=== PATIENT | male | born 1985 | race Caucasian/White ===

== ENCOUNTER → 2016-08-09 | Outpatient (REF) | payer OTHER ==
[~2016-08-09] MED LIST: ALEV220C2 PO; OMEP40CA2 PO
== END ==
LOC: M LAB REF 10:12
PROVIDERS: ATTEND Physician Assistant
DX: J02.9 Acute pharyngitis, unspecified (principal)

== ENCOUNTER → 2018-05-13 | Outpatient (REF) | payer OTHER ==
[2018-05-13 16:59] LABS: INFLUENZA A AMPLIFICATION POSITIVE (NEGATIVE); INFLUENZA B AMPLIFICATION NEGATIVE (NEGATIVE)
== END ==
LOC: M LAB REF 10:39
PROVIDERS: ATTEND Physician Assistant Medical
DX: J11.1 Influenza due to unidentified influenza virus with other respiratory manifestations (principal)

== ENCOUNTER → 2021-12-08 | Outpatient (CLI) | payer OTHER ==
[~2021-12-08] MED LIST changes: -OMEP40CA2 PO; +OMEP40CA4 PO
== END ==
LOC: M WUC 14:10
PROVIDERS: ATTEND Physician Assistant
DX: M25.562 Pain in left knee (principal)

== ENCOUNTER → 2022-01-02 | Outpatient (CLI) | payer BC, OTHER ==
[~2022-01-02] MED LIST changes: +FARX1TAB3 PO
== END ==
LOC: M LABSMTC 11:23
PROVIDERS: ATTEND Anesthesiology
DX: Z20.828 Contact with and (suspected) exposure to other viral communicable diseases (principal); Z11.59 Encounter for screening for other viral diseases

== ENCOUNTER 2022-01-06 09:16 | Day surgery (SDC) | payer BC, OTHER ==
[~2022-01-06] VITALS: Ht 182.9 cm; Wt 115.7 kg
[~2022-01-06 09:16] MED LIST changes: +LIDOCAINE 2% 100MG/5ML SDV (FOR ANES.) As Ordered ONE; +MIDAZOLAM INJ 2MG/2ML VIAL (J2250 PER 1MG) As Ordered ONE; +ONDANSETRON 4MG 2ML VIAL As Ordered ONE; +OXYMETAZOLINE 0.05% NASAL SPRAY (AFRIN) As Ordered ONE; +ROCURONIUM BROMIDE 50 MG/5 ML VIAL As Ordered ONE; +dexameTHASONE 4 MG/ML 1ML VIAL (J1100 PER 1MG) As Ordered ONE; +dexameTHASONE 4 MG/ML 1ML VIAL (J1100 PER 1MG) IV ONE; +fentaNYL 250 MCG/5 ML INJECTION As Ordered ONE; +propofoL 200 MG/20 ML VIAL As Ordered ONE
[2022-01-06] MEDS ORDERED: LR 1,000 ML IV SCH (09:20)
[2022-01-06] MEDS ORDERED: INSULIN LISPRO (NovoLOG) PER UNIT SC PRN (09:50)
[2022-01-06] MEDS ORDERED: propofoL 200 MG/20 ML VIAL As Ordered ONE ×2 (10:03→10:50)
[2022-01-06] MEDS ORDERED: SUGAMMADEX SODIUM 500 MG/5 ML VIAL (BRIDION) As Ordered ONE (10:13)
[2022-01-06] MEDS ORDERED: ACETAMINOPHEN 1000MG 100ML IV BAG As Ordered ONE (10:30)
[2022-01-06] MEDS ORDERED: METOCLOPRAMIDE INJ 10MG/2ML VIAL (J2765 PER 1) As Ordered ONE (10:30)
[2022-01-06] MEDS ORDERED: fentaNYL 100 MCG/2 ML INJECTION IV PRN (11:10)
[2022-01-06] MEDS ORDERED: ONDANSETRON 4MG 2ML VIAL IV PRN (11:10)
[2022-01-06] MEDS ORDERED: METOCLOPRAMIDE INJ 10MG/2ML VIAL (J2765 PER 1) IV PRN (11:10)
[2022-01-06] MEDS ORDERED: oxyCODONE 5MG TAB PO PRN (11:10)
[2022-01-06] MEDS ORDERED: PHENYLEPHRINE 10MG/ML 1ML VIAL As Ordered ONE (11:16)
[2022-01-06 12:42] VITALS: BP 133/75
== END 2022-01-06 12:50 | disposition home or self-care (01) ==
LOC: M SDC 09:16
PROVIDERS: ATTEND Otolaryngology
DX: J35.01 Chronic tonsillitis (principal); E11.9 Type 2 diabetes mellitus without complications; Z79.84 Long term (current) use of oral hypoglycemic drugs
CPT/HCPCS: 42826; 88302; J0131; J1100; J2250; J2370; J2405; J2765; J3010

== ENCOUNTER → 2022-06-30 | Outpatient (REF) | payer OTHER ==
[~2022-06-30] MED LIST changes: -LIDOCAINE 2% 100MG/5ML SDV (FOR ANES.) As Ordered ONE; -MIDAZOLAM INJ 2MG/2ML VIAL (J2250 PER 1MG) As Ordered ONE; -ONDANSETRON 4MG 2ML VIAL As Ordered ONE; -OXYMETAZOLINE 0.05% NASAL SPRAY (AFRIN) As Ordered ONE; -ROCURONIUM BROMIDE 50 MG/5 ML VIAL As Ordered ONE; -dexameTHASONE 4 MG/ML 1ML VIAL (J1100 PER 1MG) As Ordered ONE; -dexameTHASONE 4 MG/ML 1ML VIAL (J1100 PER 1MG) IV ONE; -fentaNYL 250 MCG/5 ML INJECTION As Ordered ONE; -propofoL 200 MG/20 ML VIAL As Ordered ONE
[2022-06-30 19:21] LABS: CREATININE, URINE 68.2 MG/DL; MAU/CREAT RATIO 4.3 MCG/MG (0.0-30.0)
== END ==
LOC: M LAB REF 17:13
PROVIDERS: ATTEND Nurse Practitioner Family
DX: E11.65 Type 2 diabetes mellitus with hyperglycemia (principal)

== ENCOUNTER → 2022-07-11 | Outpatient (REF) | payer OTHER ==
[2022-07-11 13:20] LABS: ALKALINE PHOSPHATASE 65 U/L (46-116); ALT/SGPT 43 U/L (7.0-40); AST/SGOT 22 U/L (<34); BILIRUBIN,TOTAL 0.7 MG/DL (0.3-1.2); BLOOD UREA NITROGEN 15 MG/DL (9-23); CALCIUM LEVEL 8.8 MG/DL (8.5-10.1); CARBON DIOXIDE LEVEL 26 MMOL/L (20-31); CHLORIDE LEVEL 105 MMOL/L (98-107); CHOLESTEROL LEVEL 173 MG/DL (<200); CHOLESTEROL RISK RATIO 4.77 (<5); CREATININE FOR GFR 0.64 MG/DL (0.70-1.30); GLOMERULAR FILTRATION RATE > 60.0 (>60); GLUCOSE, FASTING 238 MG/DL (60-100); HDL CHOLESTEROL 36.2 MG/DL (>40); LDL CHOLESTEROL 115.2 MG/DL (<100); NON-HDL-C 136.8 MG/DL; POTASSIUM SERUM 4.4 MMOL/L (3.5-5.1); SODIUM LEVEL 139 MMOL/L (136-145); TOTAL PROTEIN 6.8 G/DL (5.7-8.2); TRIGLYCERIDES LEVEL 108 MG/DL (<150)
== END ==
LOC: M LABDRWAD 12:33
PROVIDERS: ATTEND Nurse Practitioner Family
DX: E78.2 Mixed hyperlipidemia (principal)

== ENCOUNTER → 2023-10-09 | Outpatient (CLI) | payer BC, OTHER ==
[2023-10-09 11:02] LABS: HEMATOCRIT 43.7 % (42.0-52.0); HEMOGLOBIN 14.5 g/dl (13.5-17.5); MEAN CORPUSCULAR HEMOGLOBIN 27.5 pg (27.0-33.0); MEAN CORPUSCULAR HGB CONC 33.2 g/dl (32.0-36.5); MEAN CORPUSCULAR VOLUME 82.8 fl (80.0-96.0); PLATELET COUNT, AUTOMATED 273 10^3/uL (150-450); RED BLOOD COUNT 5.28 10^6/uL (4.30-6.10)
[2023-10-09 11:26] LABS: ALBUMIN 4.1 G/DL (3.2-5.2); ALKALINE PHOSPHATASE 65 U/L (46-116); ALT/SGPT 28 U/L (7.0-40); AST/SGOT 13 U/L (<34); BILIRUBIN,TOTAL 0.7 MG/DL (0.3-1.2); BLOOD UREA NITROGEN 11 MG/DL (9-23); CALCIUM LEVEL 9.2 MG/DL (8.5-10.1); CARBON DIOXIDE LEVEL 27 MMOL/L (20-31); CHLORIDE LEVEL 106 MMOL/L (98-107); CHOLESTEROL LEVEL 185 MG/DL (<200); CHOLESTEROL RISK RATIO 5.62 (<5); CREATININE FOR GFR 0.71 MG/DL (0.70-1.30); GLOMERULAR FILTRATION RATE > 60.0 (>60); GLUCOSE, FASTING 288 MG/DL (60-100); HDL CHOLESTEROL 32.9 MG/DL (>40); LDL CHOLESTEROL 138.7 MG/DL (<100); NON-HDL-C 152.1 MG/DL; POTASSIUM SERUM 4.3 MMOL/L (3.5-5.1); SODIUM LEVEL 139 MMOL/L (136-145); TRIGLYCERIDES LEVEL 67 MG/DL (<150)
== END ==
LOC: M WUC 08:08
PROVIDERS: ATTEND Physician Assistant
DX: E78.2 Mixed hyperlipidemia (principal); I10 Essential (primary) hypertension; E11.9 Type 2 diabetes mellitus without complications

== ENCOUNTER → 2024-01-16 | Outpatient (CLI) | payer OTHER ==
[2024-01-16 14:22] LABS: HEMATOCRIT 46.3 % (42.0-52.0); HEMOGLOBIN 15.2 g/dl (13.5-17.5); MEAN CORPUSCULAR HEMOGLOBIN 27.6 pg (27.0-33.0); MEAN CORPUSCULAR HGB CONC 32.8 g/dl (32.0-36.5); PLATELET COUNT, AUTOMATED 269 10^3/uL (150-450); RED BLOOD COUNT 5.51 10^6/uL (4.30-6.10)
[2024-01-16 14:28] LABS: ALKALINE PHOSPHATASE 55 U/L (40-129); ALT/SGPT 25 U/L (7.0-40); AST/SGOT 11 U/L (<34); BILIRUBIN,TOTAL 0.6 MG/DL (0.3-1.2); BLOOD UREA NITROGEN 13 MG/DL (9-23); CALCIUM LEVEL 9.2 MG/DL (8.5-10.1); CARBON DIOXIDE LEVEL 27 MMOL/L (20-31); CHLORIDE LEVEL 108 MMOL/L (98-107); CHOLESTEROL LEVEL 138 MG/DL (<200); CHOLESTEROL RISK RATIO 3.87 (<5); CREATININE FOR GFR 0.76 MG/DL (0.70-1.30); GLOMERULAR FILTRATION RATE > 60.0 (>60); GLUCOSE, FASTING 186 MG/DL (60-100); HDL CHOLESTEROL 35.6 MG/DL (>40); LDL CHOLESTEROL 92.2 MG/DL (<100); NON-HDL-C 102.4 MG/DL; POTASSIUM SERUM 4.8 MMOL/L (3.5-5.1); SODIUM LEVEL 142 MMOL/L (136-145); TOTAL PROTEIN 6.8 G/DL (5.7-8.2); TRIGLYCERIDES LEVEL 51 MG/DL (<150)
[2024-01-16 14:45] LABS: HEMOGLOBIN A1c 9.3 % (4.0-6.0)
[2024-01-17 09:49] LABS: WHITE BLOOD COUNT 7.3 10^3/uL (4.0-10.0)
== END ==
LOC: M WUC 09:12
PROVIDERS: ATTEND Physician Assistant
DX: E78.2 Mixed hyperlipidemia (principal); E11.9 Type 2 diabetes mellitus without complications; I10 Essential (primary) hypertension; M25.562 Pain in left knee

== ENCOUNTER → 2025-01-14 | Outpatient (CLI) | payer OTHER ==
[2025-01-14 14:32] LABS: CHOLESTEROL LEVEL 194.0 MG/DL (<200); CHOLESTEROL RISK RATIO 5.11 (<5); LDL CHOLESTEROL 141.7 MG/DL (<100); NON-HDL-C 156.1 MG/DL; TRIGLYCERIDES LEVEL 72.0 MG/DL (<150)
[2025-01-14 14:38] LABS: ESTIMATED AVERAGE GLUCOSE 329.0 MG/DL (60-110)
== END ==
LOC: M WUC 08:13
PROVIDERS: ATTEND Physician Assistant
DX: E11.9 Type 2 diabetes mellitus without complications (principal); E78.2 Mixed hyperlipidemia